=== PATIENT | female | born 2000 | race Caucasian/White ===

== ENCOUNTER → 2021-09-22 | Emergency (ER) | payer OTHER, MEDICAID ==
[~2021-09-22] VITALS: Ht 152.4 cm; Wt 54.4 kg
[~2021-09-22] MED LIST: LORazepam 0.5 MG TAB PO ONE
[2021-09-22 03:14] VITALS: BP 115/71
== END | disposition home or self-care (01) ==
LOC: EDBD 03:01 → ER 03:01
DX: R56.9 Unspecified convulsions (principal); F41.9 Anxiety disorder, unspecified
CPT/HCPCS: 70450